=== PATIENT | female | born 1995 | race Caucasian/White ===

== ENCOUNTER 2018-08-25 15:54 | Emergency (ER) | payer OTHER ==
[~2018-08-25] VITALS: Ht 172.7 cm; Wt 90.7 kg
[2018-08-25] MEDS ORDERED: BIRTH CONTROL (16:01)
[2018-08-25 18:36] VITALS: BP 130/82
== END 2018-08-25 18:37 | disposition home or self-care (01) ==
LOC: ER 15:54
DX: Z71.1 Person with feared health complaint in whom no diagnosis is made (principal)